=== PATIENT | female | born 1970 | race Caucasian/White ===

== ENCOUNTER 2016-09-15 09:31 | Outpatient (CLI) | payer OTHER ==
--- NOTE | 2016-09-15 12:11 | Fluoroscopy Report ---
BARIUM SWALLOW: HISTORY: Dysphagia. FINDINGS: Transit of barium through the cervical esophagus appears normal. There are tertiary contractions noted at the distal third of the esophagus with intermittent spasm at the gastroesophageal junction causing delay in emptying of the esophagus. No evidence of hiatal hernia. There is reflux noted extending to the lower cervical region due to spasm of the distal esophagus and tertiary contractions. No extrinsic or intrinsic filling defects noted. No evidence of aspiration. IMPRESSION: Findings as detailed above.
== END 2016-09-15 09:32 | disposition home or self-care (01) ==
LOC: FLUORO 09:31
PROVIDERS: ATTEND Internal Medicine
DX: R13.10 Dysphagia, unspecified (principal)
CPT/HCPCS: 74220